=== PATIENT | male | born 1990 | race Hispanic/Latino ===

== ENCOUNTER → 2023-08-26 07:19 | Outpatient (REF) | payer OTHER, SELFPAY ==
[2023-08-26 08:34] LABS: % Basophils 0.6 % (0-2); % Eosinophils 3.6 % (0-6); % Immature Granulocytes 0.6 % (0-0.5); % Lymphocytes 33.9 % (20.5-51.1); % Monocytes 8.8 % (1.7-9.3); % Neutrophils 52.5 % (42.2-75.2); Absolute Eosinophils 0.2 10^3/uL (0-0.7); Absolute Lymphocytes 2.2 10^3/uL (1.2-3.4); Absolute Monocytes 0.6 10^3/uL (0.1-0.6); Absolute Neutrophils 3.5 10^3/uL (1.4-6.5); Hematocrit 46.1 % (39.0-52.0); Mean Corp Hgb Conc. 34.7 g/dL (33.0-37.0); Mean Corpuscular Hgb 30.4 pg (27.0-31.0); Mean Corpuscular Volume 87.5 fL (80.0-94.0); Mean Platelet Volume 10.1 fL (7.4-10.4); Nucleated Red Blood Cells % 0 % (-); Platelet Count 217 10^3/uL (130-400); Red Blood Cell Count 5.27 10^6/uL (4.70-6.10); Red Cell Dist. Width 11.8 % (11.5-14.5); White Blood Cell Count 6.6 10^3/uL (4.8-10.8)
[2023-08-26 09:17] LABS: ALT (SGPT) 26 U/L (0-50); AST (SGOT) 28 U/L (17-59); Albumin 4.5 g/dl (3.5-5.0); Alkaline Phosphatase 95 U/L (38-126); Blood Urea Nitrogen 13 mg/dl (9-20); Calcium 9.7 mg/dl (8.4-10.2); Carbon Dioxide 24 mmol/L (22-30); Chloride 103 mmol/L (98-107); Glucose 103 mg/dl (70-99); HDL Cholesterol 28 mg/dl; Potassium 4.1 mmol/L (3.5-5.1); Sodium 136 mmol/L (135-145); Total Bilirubin 0.5 mg/dl (0.2-1.3); Total Cholesterol 184 mg/dl (50-199); Total Protein 7.7 g/dl (6.3-8.2); eGFR > 60.00
[2023-08-26 09:21] LABS: Vitamin D, 25-OH*** 28.6 ng/mL (30-80)
[2023-08-26 09:31] LABS: Glycohemoglobin (HgbA1c) 5.4 % (4.0-5.6)
[2023-08-26 10:03] LABS: Triglyceride 625 mg/dl (10-149)
[2023-08-26 11:06] LABS: LDL Cholesterol, Direct 92 mg/dl
== END ==
LOC: CLINIC 07:19
PROVIDERS: ATTENDING PHYSICIAN Student in an Organized Health Care Education/Training Program
DX: Z00.00 Encounter for general adult medical examination without abnormal findings (principal)
CPT/HCPCS: 36415; 80053; 80061; 82306; 83036; 83721; 85025

== ENCOUNTER 2023-10-04 07:31 | Emergency (ER) | payer OTHER, SELFPAY ==
[2023-10-04 07:33] VITALS: BP 141/78
--- NOTE | 2023-10-04 08:36 | ED.GENMED ---
History of Present Illness
General
Chief Complaint: Skin Problem
Source: patient and sign language interpreter
Exam Limitations: none
Time Seen by Provider: 10/04/23 08:00
Nursing documentation reviewed up to this point in time: agreed with
Travel History
Have you had any contact with someone who has COVID-19?: No
Do you have any symptoms of coronavirus? Fever > 100 degrees, chills, cough, shortness of breath, sore throat, loss of taste or smell, muscle aches, or headache?: No
History of Present Illness
History of Present Illness:
pt is a 33 y/o M with right hand dominance
here with left ring finger swelling around the nail plate 2 or 3 days ago
he doesn't remember injuring it or cutting it, he doesn't bite his nails
yesterday he cleaned with alcohol and poked the skin on the side of the nail and a little pus came out
he is here to get it looked at
no fat pad pain, fever, chills
Past History
Past History
ED Past Medical History: None
ED Past Surgical History: None
Social History
Tobacco: Non-smoker
Alcohol: None
Drug: None
Personal:
Living: with family
Employment: Employed
Review of Systems
Review of Systems
Allergies reviewed?: Yes
All Other Systems: Not applicable
Phy Exam
Physical Exam
Physical Exam:
GENERAL: Alert , in no apparent distress, comfortable at rest
CV: CAP REFILL INTACT
NEUROLOGICAL: Alert and oriented, no focal neuro deficits, , 5/5 strength, sensation intact, ambulation slight limp right leg
SKIN: Warm and dry, SWELLING SOFT TISSUE AROUND NAIL PLATE OF THE LEFT RING FINGER ULNAR SIDE
NO PURULENT DRAINAGE
MILD ERYTHEMA
NO STREAKING REDNESS
MUSCULOSKELETAL: PARONYCHIA LEFT RING FINGER
FULL ROM
NO FAT PAD TENDERNESS
PSYCH: Normal and appropriate interaction.
Course
Vital Signs
Initial and Last Documented VS:
Initial Vital Signs
Temp Pulse Resp BP Pulse Ox
98.3 F 63 16 141/78 100
10/04/23 07:33 10/04/23 07:33 10/04/23 07:33 10/04/23 07:33 10/04/23 07:33
Last Documented Vital Signs
Temp Pulse Resp BP Pulse Ox
98.3 F 63 16 141/78 100
10/04/23 07:33 10/04/23 07:33 10/04/23 07:33 10/04/23 07:33 10/04/23 07:33
Procedures
Incision/Drainage/Joint Aspiration
Left Distal Ulnar Fourth Finger(s):
Anethesia: 1% Lidocaine
Preparation: cleaned with Betadine
Type of procedure: incise
Nature of site: abscess
Description of abscess: less than 3cm
Loculations broken up: No
How much fluid was obtained?: scant amount
Fluid description: purulent and bloody
Treatment: left open for drainage
MDM/Problems Addressed
Differential Diagnosis Includes:
PARONYCHIA, FELON
MDM/Problems Addressed:
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
maintenance and repair worker
left ring finger paronychia x 3 days
poked it at home yesterday
no felon
well appearing
full rom
mild flucatuance lateral nail fold
numbed and incised
soaked warm water
bleeding controlled
d/c home, warm soaks
*Critical Care Note
Total Time (30-74mins, 75-104mins- exclusive of procedures): Not Applicable
ED Attending Note
-
Portions of this chart may have been created with voice recognition software.� Occasional wrong word or��sound alike� substitutions may have occurred due to the inherent limitations of voice recognition software.
Discharge Plan
Departure
Patient Disposition: Home (Routine Discharge)
Date of Disposition: 10/04/23
Time of Disposition: 08:42
Patient with high blood pressure during this ER visit?: Yes
Condition: Fair
Covid-19: Not Applicable
Discharge Problem:
Paronychia
Instructions: Wound Care (DC), Paronychia ED
Referrals:
UNKNOWN,NO INTERVIEW [Family Provider] -
Activity Restrictions/Additional Instructions:
SOAK YOUR FINGER IN WARM WATER A FEW TIMES A DAY THE NEXT FEW DAYS FOR 10 MINUTES TO HELP THIS HEAL
RETURN FOR WORSENING PAIN, SWELLING, REDNESS, FEVER, ETC
MOTRIN NEEDED FOR PAIN
REMOJA TU DEDO EN [place] UNAS VECES AL D�A LOS IA�XIMOS D� MANE 10 MINUTOS PARA AYUDAR A ESTO A CURAR
REGRESAR SI EL DOLOR EMPEORA, HINCHACI�N, ENROJECIMIENTO, FIEBRE, ETC.
MOTRIN SEG�N SEA NECESARIO PARA EL DOLOR
Interventions
Interventions:
*Risk Screen - Suicide Last Done: 10/04/23 07:36
*General Assessment Last Done: 10/04/23 07:36
*Neglect/Abuse Screening Last Done: 10/04/23 07:36
ED-Skin Assessment Last Done: 10/04/23 08:08
Discharge Date and Time
Print Language: TRISTANIAN
== END 2023-10-04 09:10 | disposition home or self-care (01) ==
LOC: EMR 07:31
PROVIDERS: EMERGENCY PHYSICIAN Emergency Medicine
DX: L03.012 Cellulitis of left finger (principal); R03.0 Elevated blood-pressure reading, without diagnosis of hypertension
CPT/HCPCS: 26010; 99282

== ENCOUNTER 2023-11-02 07:30 | Emergency (ER) | payer SELFPAY ==
[2023-11-02 07:35] VITALS: BP 117/63
--- NOTE | 2023-11-02 08:41 | ED.GENMED ---
History of Present Illness
General
Chief Complaint: Skin Problem
Time Seen by Provider: 11/02/23 07:48
History of Present Illness
History of Present Illness:
33-year-old Tuvaluan-speaking male presents for evaluation of an enlarging cyst to the right forehead. Has been present for 2 years but over the past week has become increasingly hard and painful. He [facility]. Denies any fevers or chills.
Past History
Past History
ED Past Medical History: None
ED Past Surgical History: None
Social History
Tobacco: Non-smoker
Alcohol: None
Drug: None
Personal:
Living: with family
Employment: Employed
Review of Systems
Review of Systems
Allergies reviewed?: Yes
All Other Systems: ROS reviewed and negative except as documented in HPI and ROS
Phy Exam
Physical Exam
Physical Exam:
GEN: Well appearing, NAD, WDWN
HEENT: 1.5 cm erythematous movable mass to the right forehead consistent with epidermal cyst ;oral mucosa moist, no scleral icterus
Cardiac: Regular rate
Lung: No respiratory distress, no tachypnea
MSK: No gross deformity or injuries
Skin: Good color, no pallor or jaundice, no rashes
Neuro: AO x3, moves all extremities freely
Psych: Calm, cooperative
Course
Vital Signs
Initial and Last Documented VS:
Initial Vital Signs
Temp Pulse Resp BP Pulse Ox
98.2 F 54 16 117/63 99
11/02/23 07:35 11/02/23 07:35 11/02/23 07:35 11/02/23 07:35 11/02/23 07:35
Last Documented Vital Signs
Temp Pulse Resp BP Pulse Ox
98.2 F 53 18 119/72 98
11/02/23 07:35 11/02/23 08:48 11/02/23 08:48 11/02/23 08:48 11/02/23 08:48
Procedures
Incision/Drainage/Joint Aspiration
R forehead:
Anethesia: 1% Lidocaine with Epi
Preparation: cleaned with alcohol wipe
Type of procedure: incise
Nature of site: cyst (sebaceous)
Description of abscess: less than 3cm
Loculations broken up: Yes
How much fluid was obtained?: small amount
Fluid description: purulent and foul smelling
Treatment: other (Sutured w/ 6-0 prolene x 1)
MDM/Problems Addressed
MDM/Problems Addressed:
Sebaceous cyst incised and removed, superficial suture placed to close the wound. Recommend 5 to 7-day follow-up for suture removal
*Critical Care Note
Total Time (30-74mins, 75-104mins- exclusive of procedures): Not Applicable
ED Attending Note
-
Portions of this chart may have been created with voice recognition software.� Occasional wrong word or��sound alike� substitutions may have occurred due to the inherent limitations of voice recognition software.
Discharge Plan
Departure
Patient Disposition: Home (Routine Discharge)
Date of Disposition: 11/02/23
Time of Disposition: 08:42
Patient with high blood pressure during this ER visit?: No
Discharge Problem:
Infected sebaceous cyst
Referrals:
Angelito Phillips MD [Family Provider] -
Interventions
Interventions:
*Risk Screen - Suicide Last Done: 11/02/23 08:49
*General Assessment Last Done: 11/02/23 08:15
ED- Fall Risk Assessment Last Done: 11/02/23 08:15
*ED COVID-19 Vaccine History Last Done: 11/02/23 07:35
*Nursing Disposition Last Done: 11/02/23 08:49
ED-Skin Assessment Last Done: 11/02/23 08:15
Discharge Date and Time
Discharge Date/Time: 11/02/23 08:50
Print Language: PALAUAN
[2023-11-02 08:48] VITALS: BP 119/72
== END 2023-11-02 08:50 | disposition home or self-care (01) ==
LOC: EMR 07:30
PROVIDERS: EMERGENCY PHYSICIAN Emergency Medicine; FAMILY PHYSICIAN Internal Medicine Cardiovascular Disease
DX: L08.9 Local infection of the skin and subcutaneous tissue, unspecified (principal); L72.3 Sebaceous cyst
CPT/HCPCS: 99282; 10060

== ENCOUNTER 2023-11-07 07:16 | Emergency (ER) | payer OTHER, SELFPAY ==
[2023-11-07 07:19] VITALS: BP 109/79
--- NOTE | 2023-11-07 08:12 | ED.SKININJ ---
HPI-Injury
General
Chief Complaint: Wound Check/Suture Removal
Source: patient and records
Time Seen by Provider: 11/07/23 08:06
History of Present Illness-Injury
Is this injury a work related problem?: No
Is pt an associate of [facility]?: No
Initial Injury comments:
Patient presents for suture removal, 1 Prolene suture was placed and infected cyst on his right forehead about a week ago patient without drainage or fever
Past History
Past History
ED Past Medical History: None
ED Past Surgical History: None
Social History
Tobacco: Non-smoker
Alcohol: None
Drug: None
Personal:
Living: with family
Employment: Employed
Review of Systems
Review of Systems
All Other Systems: Not applicable
Skin: Denies itching or rash
Phy Exam
Physical Exam
Physical Exam:
Physical Exam
General: no apparent distress, not acutely ill
Neck: Intact a 6-0 Prolene suture in the right upper forehead mild swelling no drainage
Heart: s1/s2 regular rate and rhythm, no murmur. equal radial pulses.
Lungs: no acute respiratory distress.
Neuro: alert and oriented. no focal neurological deficits
Skin: no rash
Psychiatric: well kept. interactive and cooperative
Course
Vital Signs
Initial and Last Documented VS:
Initial Vital Signs
Temp Pulse Resp BP Pulse Ox
98.2 F 52 18 109/79 99
11/07/23 07:19 11/07/23 07:19 11/07/23 07:19 11/07/23 07:19 11/07/23 07:19
Last Documented Vital Signs
Temp Pulse Resp BP Pulse Ox
98.2 F 52 18 109/79 99
11/07/23 07:19 11/07/23 07:19 11/07/23 07:19 11/07/23 07:19 11/07/23 07:19
Procedures
Other
Indication for procedure:: Suture removal
Procedure completed by: Kimberlee
Consent form signed: No
Additional Procedure:
Suture removed without difficulty
*Critical Care Note
Total Time (30-74mins, 75-104mins- exclusive of procedures): Not Applicable
Update Note
Update Note:
Suture removed
ED Attending Note
-
Portions of this chart may have been created with voice recognition software.� Occasional wrong word or��sound alike� substitutions may have occurred due to the inherent limitations of voice recognition software.
Discharge Plan
Departure
Patient Disposition: Home (Routine Discharge)
Date of Disposition: 11/07/23
Time of Disposition: 08:12
Patient with high blood pressure during this ER visit?: No
Condition: Good
Discharge Problem:
Encounter for removal of sutures
Instructions: Stitches Removal
Discharge Date and Time
Print Language: CAPE VERDE[place]
== END 2023-11-07 08:31 | disposition home or self-care (01) ==
LOC: EMR 07:16
PROVIDERS: EMERGENCY PHYSICIAN Emergency Medicine
DX: Z48.02 Encounter for removal of sutures (principal)
CPT/HCPCS: 99281

== ENCOUNTER → 2024-01-02 08:01 | Outpatient (REF) | payer OTHER, SELFPAY ==
[2024-01-02 10:23] LABS: HDL Cholesterol 35 mg/dl; LDL Cholesterol, Calculated 108 mg/dl; Total Cholesterol 206 mg/dl (50-199); Triglyceride 318 mg/dl (10-149); Very Low Density Lipoprotein 63 mg/dl (0-30)
[2024-01-02 10:33] LABS: Vitamin D, 25-OH*** 51.5 ng/mL (30-80)
== END ==
LOC: CLINIC 08:01
PROVIDERS: ATTENDING PHYSICIAN Student in an Organized Health Care Education/Training Program
DX: E78.1 Pure hyperglyceridemia (principal); E55.9 Vitamin D deficiency, unspecified
CPT/HCPCS: 36415; 80061; 82306

== ENCOUNTER → 2024-12-25 07:02 | Outpatient (REF) | payer OTHER, SELFPAY ==
[2024-12-25 07:55] LABS: Hematocrit 46.6 % (39.0-52.0); Hemoglobin 16.3 g/dL (13.0-18.0); Mean Corp Hgb Conc. 35.0 g/dL (33.0-37.0); Mean Corpuscular Volume 85.0 fL (80.0-94.0); Nucleated Red Blood Cells % 0 % (-); Platelet Count 206 10^3/uL (130-400); Red Cell Dist. Width 11.6 % (11.5-14.5)
[2024-12-25 08:17] LABS: ALT (SGPT) 25 U/L (0-50); AST (SGOT) 25 U/L (17-59); Albumin 4.7 g/dl (3.5-5.0); Alkaline Phosphatase 75 U/L (38-126); Blood Urea Nitrogen 11 mg/dl (9-20); Calcium 9.1 mg/dl (8.4-10.2); Carbon Dioxide 27 mmol/L (22-30); Chloride 106 mmol/L (98-107); Glucose 97 mg/dl (70-99); HDL Cholesterol 36 mg/dl; LDL Cholesterol, Calculated 106 mg/dl; Potassium 4.2 mmol/L (3.5-5.1); Sodium 140 mmol/L (135-145); Total Protein 7.7 g/dl (6.3-8.2); Very Low Density Lipoprotein 45 mg/dl (0-30); eGFR > 60.00
[2024-12-25 11:11] LABS: Glycohemoglobin (HgbA1c) 5.0 % (4.0-5.6)
== END ==
LOC: CLINIC 07:02
PROVIDERS: ATTENDING PHYSICIAN Internal Medicine
DX: Z00.00 Encounter for general adult medical examination without abnormal findings (principal)
CPT/HCPCS: 36415; 80053; 80061; 82248; 83036; 85025; 85652